=== PATIENT | female | born 1960 | race African-American/Black ===

== ENCOUNTER 2016-11-25 21:46 | Emergency (ER) | payer OTHER ==
[~2016-11-25 21:46] MED LIST: ASPIR-LOW81 M1 PO; ATI1 PO; DIA5 PO; MOBIC PO; NEU300 PO; SERO100; TOP100 PO; ZES10 PO; ZOV200 PO
[2016-11-26 00:14] VITALS: BP 133/100
== END 2016-11-25 23:30 | disposition home or self-care (01) ==
LOC: ED 21:46
DX: H91.8X1 Other specified hearing loss, right ear (principal); I10 Essential (primary) hypertension; F99 Mental disorder, not otherwise specified; E78.00 Pure hypercholesterolemia, unspecified; Z79.899 Other long term (current) drug therapy

== ENCOUNTER 2017-01-20 21:42 | Emergency (ER) | payer OTHER ==
[2017-01-20 21:54] VITALS: BP 158/101
== END 2017-01-21 00:15 | disposition left against medical advice (07) ==
LOC: ED 21:42
DX: Z53.21 Procedure and treatment not carried out due to patient leaving prior to being seen by health care provider (principal)

== ENCOUNTER 2018-03-29 22:02 | Emergency (ER) | payer OTHER | END 2018-03-29 22:20 | disposition left against medical advice (07) | LOC: ED 22:02 | DX: Z53.21 Procedure and treatment not carried out due to patient leaving prior to being seen by health care provider (principal) ==